=== PATIENT | female | born 1930 | race Caucasian/White ===

== ENCOUNTER 2018-04-20 07:12 | Day surgery (SDC) | payer MEDICARE, OTHER ==
[~2018-04-20] VITALS: Ht 166.4 cm; Wt 58.6 kg
[~2018-04-20 07:12] MED LIST: ASPI-611 PO; AZIT1PAC10 PO; CALC-729 PO; MULT1TAB74 PO; PANT40TA4 PO; TEMA15CA PO
[2018-04-20 07:24] VITALS: BP 115/64
[2018-04-20] MEDS ORDERED: METO-395 PO (07:33)
[2018-04-20] MEDS ORDERED: LIDOcaine Viscous 15ml cup ONE (07:38)
[2018-04-20] MEDS ORDERED: fentaNYL/PF 50MCG/1 ML 2ML syringe ONE (07:38)
[2018-04-20] MEDS ORDERED: MIDAZolam 5mg/5ml vial ONE (07:38)
[2018-04-20 09:05] VITALS: BP 113/63
[2018-04-20 09:15] VITALS: BP 114/64
[2018-04-20 09:25] VITALS: BP 113/67
[2018-04-20 09:35] VITALS: BP 116/65
== END 2018-04-20 09:50 | disposition home or self-care (01) ==
LOC: GI LAB 07:12
PROVIDERS: ATTEND Internal Medicine Gastroenterology
DX: K31.7 Polyp of stomach and duodenum (principal); K21.9 Gastro-esophageal reflux disease without esophagitis; K44.9 Diaphragmatic hernia without obstruction or gangrene; Z86.79 Personal history of other diseases of the circulatory system; Z90.49 Acquired absence of other specified parts of digestive tract; Z72.89 Other problems related to lifestyle; Z96.652 Presence of left artificial knee joint; Z90.89 Acquired absence of other organs; Z88.0 Allergy status to penicillin; Z88.2 Allergy status to sulfonamides; Z88.1 Allergy status to other antibiotic agents; Z79.82 Long term (current) use of aspirin; Z98.890 Other specified postprocedural states; Z79.899 Other long term (current) drug therapy; Z88.8 Allergy status to other drugs, medicaments and biological substances; Z82.3 Family history of stroke; Z80.1 Family history of malignant neoplasm of trachea, bronchus and lung
CPT/HCPCS: 43239; 43251; J2250; J3010; J7030; 88305; 88342; 99152; A4620

== ENCOUNTER 2020-04-27 05:56 | Day surgery (SDC) | payer MEDICARE, OTHER ==
[2020-04-26 11:19] LABS: BASOPHILS % (AUTO) 0.8 % (0-1); EOSINOPHILS # (AUTO) 0.1 X10'3 (0-0.9); EOSINOPHILS % (AUTO) 1.4 % (0-6); HEMATOCRIT 38.7 % (35.0-45.0); HEMOGLOBIN 12.8 g/dl (12.0-16.0); LYMPHOCYTES # (AUTO) 1.2 X10'3 (1.1-4.8); LYMPHOCYTES % (AUTO) 21.1 % (21-51); MEAN CORPUSCULAR HGB CONC 32.9 g/dL (33.0-36.5); MEAN CORPUSCULAR VOLUME 88.2 FL (78-98); MONOCYTES # (AUTO) 0.5 X10'3 (0-0.9); MONOCYTES % (AUTO) 8.3 % (2-12); NEUTROPHILS # (AUTO) 3.8 X10'3 (1.8-7.7); NEUTROPHILS % (AUTO) 68.4 % (42-75); PLATELET COUNT 196 X10'3 (140-440); RED BLOOD COUNT 4.39 X10'6 (4.20-5.60); RED CELL DISTRIBUTION WIDTH 14.9 % (11.5-14.5); WHITE BLOOD COUNT 5.5 X10'3 (4.5-11.0)
[2020-04-26 11:20] LABS: PARTIAL THROMBOPLASTIN TIME 27 SECONDS (22-32)
[2020-04-26 11:22] LABS: ALANINE AMINOTRANSFERASE 20 U/L (12-78); ALBUMIN 4.2 G/DL (3.4-5.0); ALBUMIN/GLOBULIN RATIO 1.3 (1.1-1.5); ALKALINE PHOSPHATASE 59 IU/L (46-116); ANION GAP 6 (8-16); ASPARTATE AMINO TRANSFERASE 18 U/L (10-37); BILIRUBIN,TOTAL 0.8 MG/DL (0.1-1.0); BLOOD UREA NITROGEN 15 MG/DL (7-18); BUN/CREATININE RATIO 14.4 (6.6-38.0); CALCIUM 9.4 MG/DL (8.5-10.1); CHLORIDE 108 MMOL/L (99-107); CHOL/HDL RATIO 2.1 (0.00-4.99); CHOLESTEROL 225 MG/DL (0-200); CREATININE 1.04 MG/DL (0.40-0.90); GLUCOSE 95 MG/DL (70-104); HDL CHOLESTEROL 107 MG/DL (35-60); LDL CHOLESTEROL 110 MG/DL (50-100); POTASSIUM 4.3 MMOL/L (3.5-5.1); SODIUM 144 MMOL/L (135-145); TOTAL CARBON DIOXIDE 30.3 MMOL/L (24-32); TOTAL PROTEIN 7.5 G/DL (6.4-8.2); TRIGLYCERIDES 78 MG/DL (20-135); eGFR 50 ML/MIN
[~2020-04-27] VITALS: Ht 165.1 cm; Wt 55.4 kg
[2020-04-27] VITALS (12 sets, daily range): BP systolic 101–125; BP diastolic 55–71
[~2020-04-27 05:56] MED LIST changes: -AZIT1PAC10 PO; +METO-395 PO; +MULT-620 PO; -MULT1TAB74 PO; -PANT40TA4 PO; +PANT40TA54 PO
[2020-04-27] MEDS ORDERED: diphenhydrAMINE 25mg capsule PO PRN (06:20)
[2020-04-27] MEDS ORDERED: LIDOcaine/PRILOcaine 5gm cream TP ONE (06:20)
[2020-04-27] MEDS ORDERED: LORazepam 0.5 MG tablet PO PRN (06:20)
[2020-04-27] MEDS ORDERED: normal saline 1,000 ML IV SCH (06:20)
[2020-04-27] MEDS ORDERED: OCUVITE PO (06:38)
[2020-04-27] MEDS ORDERED: fentaNYL/PF 50MCG/1 ML 2ML syringe ONE (07:48)
[2020-04-27] MEDS ORDERED: verapamil 2.5 mg/ml inj IV ONE (07:48)
[2020-04-27] MEDS ORDERED: heparin 1,000unit/ml 10ml vial 10 ML ONE (07:49)
[2020-04-27] MEDS ORDERED: nitroGLYCERIN-Tridil 50MG/D5W 250 ML IV ONE (07:49)
[2020-04-27] MEDS ORDERED: iohexol 350 MG/ML 50ML vial IV ONE (07:49)
[2020-04-27] MEDS ORDERED: iohexol 350MG/ML 100ml bottle IV ONE (07:49)
[2020-04-27] MEDS ORDERED: midazolam 2 mg/2 ml injection ONE (07:49)
[2020-04-27] MEDS ORDERED: LIDOcaine 1% (10mg/ml)w/preservative injection 20ml MDV ONE (07:49)
[2020-04-27] MEDS ORDERED: heparin 1,000 UNITS/NS 500ml 500 ML ONE (08:53)
[2020-04-27] MEDS ORDERED: furosemide 40mg/4ml inj IV ONE (09:30)
[2020-04-27] MEDS ORDERED: vancomycin/NS 1 GM ADD-VANTAGE 250 ML X 1 DOSE IV ONE (09:30)
--- NOTE | 2020-04-27 12:45 | NUR ---
VASCULAR BAND REMOVED, SITE DRESSED WITH STERILE 2X2 AND TEGADERM, TOPPED WITH FOLDED 4X4'S AND COFLEX, ALSO REWRAPPED A/C ACCESS SITE ON RIGHT. PT MAY ABERNATHY, Addendum: 04/27/20 at 1629 by Anahi Richard RN Amended: Links added.
== END 2020-04-27 16:00 | disposition home or self-care (01) ==
LOC: SSTAY O 05:56
PROVIDERS: ATTEND Internal Medicine Cardiovascular Disease
DX: R06.02 Shortness of breath (principal); R53.83 Other fatigue; I25.10 Atherosclerotic heart disease of native coronary artery without angina pectoris; I47.1 Supraventricular tachycardia; E78.5 Hyperlipidemia, unspecified; K21.9 Gastro-esophageal reflux disease without esophagitis; I05.9 Rheumatic mitral valve disease, unspecified; E78.49 Other hyperlipidemia; Z88.0 Allergy status to penicillin; Z88.2 Allergy status to sulfonamides; Z88.8 Allergy status to other drugs, medicaments and biological substances; Z96.659 Presence of unspecified artificial knee joint; Z79.82 Long term (current) use of aspirin; Z79.899 Other long term (current) drug therapy; Z72.89 Other problems related to lifestyle
CPT/HCPCS: 36415; 76937; 80053; 80061; 85025; 85610; 85730; 93005; 93460; 99152; 99153; C1760; C1769; C1894; J1644; J1940; J2001; J2250; J3010; J3370; J7030; J7040; Q0163; Q9967; A4620; A5120; A6258; C1751; J3490